=== PATIENT | female | born 1970 | race African-American/Black ===

== ENCOUNTER 2017-04-30 16:07 | Emergency (ER) | payer SELFPAY ==
[~2017-04-30] VITALS: Ht 167.6 cm; Wt 92.9 kg
[2017-04-30 17:05] LABS: BASOPHILS # (AUTO) 0.05 x10^3/uL (0-0.1); BASOPHILS % (AUTO) 1 % (0-1); EOSINOPHILS # (AUTO) 0.35 x10^3/uL (0-0.4); EOSINOPHILS % (AUTO) 5 % (1-7); LYMPHOCYTES # (AUTO) 1.64 x10^3/uL (1-3.4); LYMPHOCYTES % (AUTO) 23 % (22-44); MD NO; MEAN CORPUSCULAR VOLUME 81.3 fL (80-100); MEAN PLATELET VOLUME 8.3 fL (7.4-10.4); MONOCYTES # (AUTO) 0.48 x10^3/uL (0.2-0.8); MONOCYTES % (AUTO) 7 % (2-9); NEUTROPHILS # (AUTO) 4.59 x10^3/uL (1.8-6.8); NEUTROPHILS % (AUTO) 65 % (42-75); PLATELET COUNT 288 x10^3/uL (130-400); RED BLOOD COUNT 4.21 x10^6/uL (3.82-5.3)
[2017-04-30 17:17] LABS: ALBUMIN 3.5 g/dL (3.4-5.0); ANION GAP 9 mmol/L (5-15); CALCIUM 8.3 mg/dL (8.5-10.1); CHLORIDE 107 mmol/L (98-107); CREATININE 0.98 mg/dL (0.55-1.02)
[2017-04-30 17:21] LABS: TROPONIN I < 0.015 ng/mL (0.000-0.045)
[2017-04-30] MEDS ORDERED: METF500T4 PO (18:31)
[2017-04-30 18:35] VITALS: BP 133/77
== END 2017-04-30 20:16 | disposition home or self-care (01) ==
LOC: ED 19:44
DX: M54.6 Pain in thoracic spine (principal); R07.89 Other chest pain; F17.200 Nicotine dependence, unspecified, uncomplicated; E11.9 Type 2 diabetes mellitus without complications
CPT/HCPCS: 36415; 71045; 80048; 82040; 84484; 85025; 93005; 99285

== ENCOUNTER 2017-11-08 17:47 | Emergency (ER) | payer SELFPAY ==
[~2017-11-08] VITALS: Ht 165.1 cm; Wt 89.9 kg
[~2017-11-08 17:47] MED LIST: METF500T5 PO
[2017-11-08 18:44] LABS: ALBUMIN 3.6 g/dL (3.4-5.0); ANION GAP 6 mmol/L (5-15); CALCIUM 8.9 mg/dL (8.5-10.1); CHLORIDE 106 mmol/L (98-107)
[2017-11-08 18:45] LABS: BASOPHILS # (AUTO) 0.06 x10^3/uL (0-0.1); BASOPHILS % (AUTO) 1 % (0-1); EOSINOPHILS # (AUTO) 0.28 x10^3/uL (0-0.4); EOSINOPHILS % (AUTO) 4 % (1-7); LYMPHOCYTES # (AUTO) 1.93 x10^3/uL (1-3.4); LYMPHOCYTES % (AUTO) 28 % (22-44); MD NO; MEAN CORPUSCULAR HEMOGLOBIN 28.3 pg (27.0-34.8); MEAN CORPUSCULAR HGB CONC 32.8 g/dL (32.4-35.8); MEAN CORPUSCULAR VOLUME 86.5 fL (80-100); MEAN PLATELET VOLUME 9.1 fL (7.4-10.4); MONOCYTES # (AUTO) 0.33 x10^3/uL (0.2-0.8); MONOCYTES % (AUTO) 5 % (2-9); NEUTROPHILS # (AUTO) 4.25 x10^3/uL (1.8-6.8); NEUTROPHILS % (AUTO) 62 % (42-75); PLATELET COUNT 288 x10^3/uL (130-400); RED BLOOD COUNT 4.08 x10^6/uL (3.82-5.3)
[2017-11-08 18:49] LABS: CREATININE 0.92 mg/dL (0.55-1.02); TROPONIN I < 0.015 ng/mL (0.000-0.045)
[2017-11-08] MEDS ORDERED: KETOROLAC 30 MG/1 ML ONE (19:15)
[2017-11-08] MEDS ORDERED: METHOCARBAMOL 750 MG TABLET ONE (19:15)
[2017-11-08] MEDS ORDERED: METHOCARBAMOL 750 MG TABLET PO ONE (19:30)
[2017-11-08] MEDS ORDERED: KETOROLAC 30 MG/1 ML IM ONE (19:30)
[2017-11-08 20:30] VITALS: BP 141/87
== END 2017-11-08 20:34 | disposition home or self-care (01) ==
LOC: ED 19:05
DX: S29.012A Strain of muscle and tendon of back wall of thorax, initial encounter (principal); S46.812A Strain of other muscles, fascia and tendons at shoulder and upper arm level, left arm, initial encounter; F31.9 Bipolar disorder, unspecified; E11.9 Type 2 diabetes mellitus without complications; X58.XXXA Exposure to other specified factors, initial encounter; Y93.89 Activity, other specified; Y92.89 Other specified places as the place of occurrence of the external cause; Y99.8 Other external cause status
CPT/HCPCS: 36415; 71045; 80048; 82040; 84484; 85025; 93005; 96372; 99285; J1885

== ENCOUNTER 2018-07-15 17:39 | Emergency (ER) | payer SELFPAY ==
[~2018-07-15] VITALS: Ht 165.1 cm; Wt 95.0 kg
[~2018-07-15 17:39] MED LIST changes: +METF500T17 PO; -METF500T5 PO
[2018-07-15 18:10] VITALS: BP 171/96
[2018-07-15 18:16] LABS: BASOPHILS # (AUTO) 0.03 x10^3/uL (0-0.1); BASOPHILS % (AUTO) 0 % (0-1); EOSINOPHILS % (AUTO) 3 % (1-7); LYMPHOCYTES # (AUTO) 1.89 x10^3/uL (1-3.4); LYMPHOCYTES % (AUTO) 25 % (22-44); MD NO; MEAN CORPUSCULAR HEMOGLOBIN 27.4 pg (27.0-34.8); MEAN CORPUSCULAR HGB CONC 32.5 g/dL (32.4-35.8); MEAN CORPUSCULAR VOLUME 84.4 fL (80-100); MEAN PLATELET VOLUME 8.8 fL (7.4-10.4); MONOCYTES # (AUTO) 0.42 x10^3/uL (0.2-0.8); MONOCYTES % (AUTO) 6 % (2-9); NEUTROPHILS # (AUTO) 5.04 x10^3/uL (1.8-6.8); NEUTROPHILS % (AUTO) 67 % (42-75); PLATELET COUNT 318 x10^3/uL (130-400); RED CELL DISTRIBUTION WIDTH 16.1 % (9.6-15.2)
[2018-07-15 18:23] LABS: MICROSCOPIC AUTO
[2018-07-15 18:26] LABS: ALANINE AMINOTRANSFERASE 17 U/L (12-78); ALBUMIN 3.7 g/dL (3.4-5.0); ANION GAP 6 mmol/L (5-15); CALCIUM 8.8 mg/dL (8.5-10.1); CHLORIDE 109 mmol/L (98-107)
[2018-07-15 18:27] LABS: CULTURE INDICATED? NO
[2018-07-15 18:31] LABS: ALKALINE PHOSPHATASE 87 U/L (45-117); BILIRUBIN,TOTAL 0.2 mg/dL (0.2-1.0); CREATININE 0.99 mg/dL (0.55-1.02); TOTAL PROTEIN 8.1 g/dL (6.4-8.2)
--- NOTE | 2018-07-15 18:44 | NUR ---
Chart up for recheck
--- NOTE | 2018-07-15 19:03 | NUR ---
Pt verbalized understanding of DC instructions, denies any questions/concerns.
== END 2018-07-15 19:04 | disposition home or self-care (01) ==
LOC: ED 17:54
DX: I10 Essential (primary) hypertension (principal); R10.9 Unspecified abdominal pain; E11.9 Type 2 diabetes mellitus without complications; F17.200 Nicotine dependence, unspecified, uncomplicated
CPT/HCPCS: 36415; 80053; 81001; 84703; 85025; 99283